=== PATIENT | male | born 1965 | race Caucasian/White ===

== ENCOUNTER → 2019-05-27 | Day surgery (SDC) | payer OTHER | LOC: MSO 10:52 | DX: K30 Functional dyspepsia (principal); R63.4 Abnormal weight loss; E11.9 Type 2 diabetes mellitus without complications; Z79.4 Long term (current) use of insulin; Z87.891 Personal history of nicotine dependence | CPT/HCPCS: 00813; J2704; J7030 ==

== ENCOUNTER 2023-06-20 12:48 | Outpatient (RCR) | payer OTHER | END 2023-07-12 | disposition home or self-care (01) | LOC: PT | DX: M25.562 Pain in left knee (principal) ==